=== PATIENT | male | born 1980 | race Caucasian/White ===

== ENCOUNTER 2018-08-15 05:12 | Emergency (ER) | payer MEDICAID ==
[~2018-08-15] VITALS: Ht 177.8 cm; Wt 80.7 kg
[2018-08-15] MEDS ORDERED: BLEPHAMIDE EYE D LEFTEYE (07:39)
== END 2018-08-15 07:53 | disposition home or self-care (01) ==
LOC: ER 05:12
DX: T65.891A Toxic effect of other specified substances, accidental (unintentional), initial encounter (principal); H10.212 Acute toxic conjunctivitis, left eye; Z88.8 Allergy status to other drugs, medicaments and biological substances
CPT/HCPCS: 99283